=== PATIENT | female | born 1965 | race Caucasian/White ===

== ENCOUNTER 2018-11-24 15:08 | Emergency (ER) | payer MEDICAID ==
[2018-11-24 15:25] VITALS: TEMP 96.2; O2SAT 99
--- NOTE | 2018-11-24 15:30 | RAD ---
Frontal and lateral views of the left knee. Indication: twisted with medial pain Comparison: None Impression: Moderate narrowing medial compartment with mild narrowing lateral and patellofemoral compartments. Tiny effusion. No acute fracture. 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 Electronically signed by: Otis Singh MD 11/24/2018 3:27 PM [facility]
--- NOTE | 2018-11-24 15:45 | ED.PDOC ---
History of Present Illness - General Chief Complaint: Lower Extremity Injury Stated Complaint: left knee pain Time Seen by Provider: 11/24/18 15:13 Source: patient Exam Limitations: no limitations - History of Present Illness Initial Comments: The patient's a 53-year-old female presenting to emergency room secondary to left knee pain after stepping off a step and twisting it yesterday. The patient's pain is primarily to the medial aspect with tenderness over the medial collateral ligament. No obvious anterior or posterior drawer sign. There is mild swelling of the knee. No laceration. She is neurovascularly intact distally. No palpable crepitus or deformity otherwise. No hip or ankle pain. No other injuries. Timing/Duration: 24 hours Severity: moderate Improving Factors: immobilization Worsening Factors: movement Associated Symptoms: denies symptoms Allergies/Adverse Reactions: Allergies Penicillins Allergy (Verified 11/24/18 15:25) Home Medications: Ambulatory Orders Lisinopril 20 mg PO DAILY 11/24/18 SUMAtriptan SUCCINATE [Imitrex] 50 mg PO PRN 11/24/18 Tramadol HCl 50 mg PO Q8HR PRN #20 tab 11/24/18 Review of Systems - Review of Systems Constitutional: States: no symptoms reported EENTM: States: no symptoms reported Respiratory: States: no symptoms reported Cardiology: States: no symptoms reported Gastrointestinal/Abdominal: States: no symptoms reported Genitourinary: States: no symptoms reported Musculoskeletal: States: see HPI Skin: States: no symptoms reported Neurological: States: no symptoms reported Endocrine: States: no symptoms reported All other Systems: No Change from Baseline Past Medical History (General) - Patient Medical History Hx Stroke: No Hx Congestive Heart Failure: No Hx Hypertension: Yes Hx Diabetes: No Surgical History: Hysterectomy - Vaccination History Hx Influenza Vaccination: No Hx Pneumococcal Vaccination: No - Social History Hx Tobacco Use: Yes Family Medical History - Family History Mother Family History: Unknown Living Status: Unknown Physical Exam - Physical Exam General Appearance: Alert, No apparent distress Eye Exam: bilateral normal Ears, Nose, Throat: hearing grossly normal Neck: full range of motion Respiratory: no respiratory distress, no accessory muscle use Cardiovascular/Chest: normal peripheral pulses, no edema Peripheral Pulses: dorsalis pedis,right: 2+, dorsalis pedis,left: 2+ Rectal Exam: deferred Back Exam: normal inspection Extremity: normal range of motion, no pedal edema, no calf tenderness, normal capillary refill, other - see history of present illness. Neurologic: specimen collector II-XII nml as tested, alert, normal mood/affect, oriented x 3 Skin Exam: normal color Comments: Vital Signs - 24 hr 11/24/18 15:19 Temperature 96.2 F L Pulse Rate [ 85 Right Brachial] Respiratory 16 Rate Blood Pressure 172/112 [Right Arm] O2 Sat by Pulse 99 Oximetry Progress - Progress Progress: 11/24/18 15:51 the patient is a 53-year-old female presenting to emergency room secondary to a left knee sprain with what appears to be injury to the medial collateral ligament. The patient is being placed in a knee immobilizer. She'll be written for tramadol for as needed use and she can additionally use Aleve as well. At night she can remove the knee immobilizer and do range of motion exercises. x-ray fails to show any fracture or dislocation. ER warnings were given. Follow-up with primary care doctor in 1 month. Departure - Departure Clinical Impression: Left knee sprain Qualifiers: Encounter type: initial encounter Involved ligament of knee: medial collateral ligament Qualified Code(s): S83.412A - Sprain of medial collateral ligament of left knee, initial encounter Disposition: Discharge to Home or Self Care Condition: Fair Departure Forms: ED Discharge - Pt. Copy, Patient Portal Self Enrollment Diet: regular diet Activity: no exercise Prescriptions: Tramadol HCl 50 mg PO Q8HR PRN #20 tab PRN Reason: Moderate To Severe Pain Home Medications: Ambulatory Orders Lisinopril 20 mg PO DAILY 11/24/18 SUMAtriptan SUCCINATE [Imitrex] 50 mg PO PRN 11/24/18 Tramadol HCl 50 mg PO Q8HR PRN #20 tab 11/24/18 Additional Instructions: the patient is a 53-year-old female presenting to emergency room secondary to a left knee sprain with what appears to be injury to the medial collateral ligament. The patient is being placed in a knee immobilizer. She'll be written for tramadol for as needed use and she can additionally use Aleve as well. At night she can remove the knee immobilizer and do range of motion exercises. x-ray fails to show any fracture or dislocation. ER warnings were given. Follow-up with primary care doctor in 1 month.
[2018-11-24] MEDS ORDERED: traMADol HCL 50 MG TAB PO ONE (16:11)
[2018-11-24 16:26] VITALS: BP 166/103
== END 2018-11-24 16:26 | disposition home or self-care (01) ==
LOC: ER 15:08
DX: S83.412A Sprain of medial collateral ligament of left knee, initial encounter (principal); I10 Essential (primary) hypertension; Z87.891 Personal history of nicotine dependence; Z88.0 Allergy status to penicillin; X50.9XXA Other and unspecified overexertion or strenuous movements or postures, initial encounter; Y92.9 Unspecified place or not applicable